=== PATIENT | female | born 1975 | race African-American/Black ===

== ENCOUNTER 2019-10-20 00:14 | Emergency (ER) | payer BC, OTHER ==
[~2019-10-20] VITALS: Ht 149.9 cm; Wt 75.0 kg
[2019-10-20 00:22] VITALS: BP 118/76
== END 2019-10-20 01:54 | disposition home or self-care (01) ==
LOC: ER 00:14
DX: S00.411A Abrasion of right ear, initial encounter (principal); X58.XXXA Exposure to other specified factors, initial encounter; Y93.89 Activity, other specified; Y92.018 Other place in single-family (private) house as the place of occurrence of the external cause; F12.90 Cannabis use, unspecified, uncomplicated
CPT/HCPCS: 99283